=== PATIENT | male | born 1970 | race Hispanic/Latino ===

== ENCOUNTER 2022-05-01 11:47 | Emergency (ER) | payer SELFPAY ==
[2022-05-01 12:41] LABS: Absolute Lymphocytes (CBC) 1.8 K/uL (0.7-4.9); Hematocrit 41.7 % (39.6-49.0); Lymphocytes % 31.4 % (15.3-44.8); MPV 9.9 fL (7.6-11.3); RBC Red Blood Cell Count 4.53 M/uL (4.33-5.43)
[2022-05-01 12:43] LABS: Urine Blood Negative (Negative); Urine Glucose Negative (Negative); Urine Protein Negative (Negative); Urine Specific Gravity <=1.005 (1.005-1.030)
[2022-05-01 12:54] LABS: Potassium 3.7 mmol/L (3.5-5.1)
[2022-05-01 12:58] LABS: Urine Bacteria None Seen /HPF (<20); Urine RBC None Seen /HPF (None Seen)
[2022-05-01] MEDS ORDERED: lisinopriL 10 MG TAB ONE (13:23)
--- NOTE | 2022-05-01 14:10 | ER ---
Nurse's Notes [facility] Name: Keegan Tamez Age: 51 yrs Sex: Male : 1970 Arrival Date: 05/01/2022 Time: 11:50 Bed 16 Private MD: Diagnosis: Hypertensive heart disease without heart failure Presentation: 05/01 11:58 Chief complaint: Patient states: he took his blood pressure this morning and his ap3 systolic number was in the 180s. patient denies headache, states his vision is normal, and reports no neuro deficits at this time. Patient reports seeing his PCP 4 days ago, and was started on blood pressure medications at that time. patient presents to the ED today because he has a concern that his blood pressure isn't going down after starting the medication. Coronavirus screen: At this time, the client does not indicate any symptoms associated with coronavirus-19. Ebola Screen: No symptoms or risks identified at this time. Initial Sepsis Screen: Does the patient meet any 2 criteria?. Risk Assessment: Do you want to hurt yourself or someone else? Patient reports no desire to harm self or others. Onset of symptoms was May 01, 2022. 11:58 Method Of Arrival: Ambulatory ap3 12:02 Initial Sepsis Screen: Does the patient have a suspected source of infection? No. ap3 Patient's initial sepsis screen is negative. 12:02 Acuity: ERMA 3 ap3 Triage Assessment: 12:02 General: Appears in no apparent distress. Behavior is calm, cooperative. Pain: Denies ap3 pain. Neuro: Level of Consciousness is awake, alert, obeys commands, Oriented to person, place, time, situation. Cardiovascular: Patient's skin is warm and dry. Respiratory: Airway is patent Respiratory effort is even, unlabored. Historical: - Allergies: 12:01 No Known Allergies; ap3 - Home Meds: 12:01 unknown blood pressure medication with a number 10 on it [Active]; ap3 - PMHx: 12:01 Hypertensive disorder; ap3 - Immunization history:: Client reports receiving the 2nd dose of the Covid vaccine. - Social history:: Smoking status: Patient reports the use of cigarette tobacco products, denies chronic smoking, but will smoke occasionally, Patient uses alcohol, occasionally. Screenin:02 Abuse screen: Denies threats or abuse. Nutritional screening: No deficits noted. ap3 Tuberculosis screening: No symptoms or risk factors identified. 12:02 Fall Risk None identified. ap3 Assessment: 12:16 General: Appears in no apparent distress. comfortable, Behavior is calm, cooperative, ld1 appropriate for age. Pain: Denies pain. Neuro: Level of Consciousness is awake, alert, obeys commands, Oriented to person, place, time, situation. Cardiovascular: Capillary refill < 3 seconds Patient's skin is warm and dry. Rhythm is sinus bradycardia. Respiratory: Airway is patent Respiratory effort is even, unlabored. GI: Abdomen is flat, non-distended. : No signs and/or symptoms were reported regarding the genitourinary system. EENT: No signs and/or symptoms were reported regarding the EENT system. Derm: No signs and/or symptoms reported regarding the dermatologic system. Musculoskeletal: No signs and/or symptoms reported regarding the musculoskeletal system. Vital Signs: 11:58 BP 177 / 92; Pulse 60; Resp 17; Temp 98.2; Pulse Ox 100% ; Weight 90.72 kg; Height 5 ap3 ft. 9 in. (175.26 cm); 12:16 BP 167 / 96; Pulse 58; Resp 21; Pulse Ox 100% on R/A; Pain 0/10; ld1 13:09 BP 156 / 87; Pulse 63; Resp 25; Pulse Ox 100% on R/A; ld1 14:31 BP 179 / 94; Pulse 71; Resp 18; Pulse Ox 100% on R/A; ld1 11:58 Body Mass Index 29.53 (90.72 kg, 175.26 cm) ap3 ED Course: 11:50 Patient arrived in ED. mr 11:53 Chencho Reece PA is PHCP. cp 11:53 Shani Sanchez is Attending Physician. cp 12:02 Triage completed. ap3 12:02 Arm band placed on left wrist. ap3 12:03 Etta Guerrero is Primary Nurse. eh3 12:16 Patient has correct armband on for positive identification. Placed in gown. Bed in low ld1 position. Call light in reach. Side rails up X2. customer support consultant on. Pulse ox on. NIBP on. Door closed. Noise minimized. Warm blanket given. 12:16 No provider procedures requiring assistance completed. ld1 12:29 EKG done, by ED staff, reviewed by Chencho CORTEZ. mb7 12:33 Inserted saline lock: 20 gauge in left antecubital area, using aseptic technique. Blood ld1 collected. 12:58 Urine Microscopic Only Sent. ld1 13:55 XRAY Chest (1 view) In Process Unspecified. EDMS 14:37 IV discontinued. ld1 Administered Medications: 13:16 Drug: Lisinopril 10 mg Route: PO; ld1 Medication: 12:16 VIS not applicable for this client. ld1 Outcome: 14:09 Discharge ordered by . jack 14:37 Discharged to home ambulatory. ld1 14:37 Condition: stable 14:37 Discharge instructions given to patient, family, Instructed on discharge instructions, follow up and referral plans. medication usage, Demonstrated understanding of instructions, follow-up care, medications, Prescriptions given X 1. 14:37 Patient left the ED. ld1 Signatures: Dispatcher [employer] [facility] [place] Elen Chencho Loera PA PA cp Prokisch, Amanda, RN RN ap3 Leta Naik RN RN ld1 Elen Valles 7 Etta Guerrero 3
--- NOTE | 2022-05-01 14:11 | EDPHYS ---
Physician Documentation [facility] Name: Keegan Tamez Age: 51 yrs Sex: Male : 1970 Arrival Date: 05/01/2022 Time: 11:50 Bed 16 Private MD: ED Physician Shani Sanchez HPI: 05/01 12:20 This 51 yrs old Male presents to ER via Ambulatory with complaints of High cp Blood Pressure. 12:20 The patient has elevated blood pressure and discovered this at home. cp 12:20 Associated signs and symptoms: The patient has no apparent associated signs or cp symptoms. Severity of symptoms: At its worst the blood pressure was systolic pressure in 180's. Patient reports he was recently started on blood pressure medication 4 days ago. Patient unsure of name and dosage of medication and does not have medication with him. Historical: - Allergies: 12:01 No Known Allergies; ap3 - Home Meds: 12:01 unknown blood pressure medication with a number 10 on it [Active]; ap3 - PMHx: 12:01 Hypertensive disorder; ap3 - Immunization history:: Client reports receiving the 2nd dose of the Covid vaccine. - Social history:: Smoking status: Patient reports the use of cigarette tobacco products, denies chronic smoking, but will smoke occasionally, Patient uses alcohol, occasionally. ROS: 12:25 Constitutional: Negative for body aches, chills, fever, poor PO intake. cp 12:25 Eyes: Negative for injury, pain, redness, and discharge. cp 12:25 ENT: Negative for drainage from ear(s), ear pain, sore throat, difficulty swallowing, difficulty handling secretions. 12:25 Cardiovascular: Negative for chest pain, palpitations. 12:25 Respiratory: Negative for cough, shortness of breath, wheezing. 12:25 Abdomen/GI: Negative for abdominal pain, nausea, vomiting, and diarrhea. 12:25 Neuro: Negative for altered mental status, headache, numbness, weakness. 12:25 All other systems are negative. Exam: 12:30 Constitutional: The patient appears in no acute distress, alert, awake, cp non-diaphoretic, non-toxic, well developed, well nourished. 12:30 Head/Face: Normocephalic, atraumatic. cp 12:30 Eyes: Periorbital structures: appear normal, Conjunctiva: normal, no exudate, no injection, Sclera: no appreciated abnormality, Lids and lashes: appear normal, bilaterally. 12:30 ENT: External ear(s): are unremarkable, Nose: is normal, Mouth: Lips: moist, Oral mucosa: pink and intact, moist, Posterior pharynx: Airway: no evidence of obstruction, patent. 12:30 Neck: ROM/movement: is normal, is supple, without pain, no range of motions limitations. 12:30 Chest/axilla: Inspection: normal. 12:30 Cardiovascular: Rate: normal, Rhythm: regular, Edema: is not appreciated, JVD: is not appreciated. 12:30 Respiratory: the patient does not display signs of respiratory distress, Respirations: normal, no use of accessory muscles, no retractions, labored breathing, is not present, Breath sounds: are clear throughout, no decreased breath sounds, no stridor, no wheezing. 12:30 Abdomen/GI: Exam negative for discomfort, distension, guarding, Inspection: abdomen appears normal. 12:30 Neuro: Orientation: to person, place \T\ time. Mentation: is normal, Cerebellar function: is grossly normal, Motor: moves all fours, strength is normal, Sensation: is normal, Gait: is steady, at a normal pace, without difficulty. 12:35 ECG was reviewed by the Attending Physician. cp Vital Signs: 11:58 BP 177 / 92; Pulse 60; Resp 17; Temp 98.2; Pulse Ox 100% ; Weight 90.72 kg; Height 5 ap3 ft. 9 in. (175.26 cm); 12:16 BP 167 / 96; Pulse 58; Resp 21; Pulse Ox 100% on R/A; Pain 0/10; ld1 13:09 BP 156 / 87; Pulse 63; Resp 25; Pulse Ox 100% on R/A; ld1 14:31 BP 179 / 94; Pulse 71; Resp 18; Pulse Ox 100% on R/A; ld1 11:58 Body Mass Index 29.53 (90.72 kg, 175.26 cm) ap3 MDM: 12:03 Patient medically screened. cp 13:00 Differential diagnosis: hypertensive crisis, Malignant HTN, CVA, intracerebral cp hemorrhage. 13:31 Data reviewed: vital signs, nurses notes, lab test result(s), EKG, radiologic studies, cp plain films. Test interpretation: by ED physician or midlevel provider: ECG, chest xray negative for infiltrates. ED course: VSS. Blood pressure improved. Patient unsure of dosage, name of blood pressure medication and/or pharmacy used to fill prescribed blood pressure medication at this time. 05/01 12:18 Order name: Urine Microscopic Only; Complete Time: 13:09 05/01 12:18 Order name: Basic Metabolic Panel; Complete Time: 13:09 05/01 13:10 Interpretation: Normal except: GLUC 108. cp 05/01 12:18 Order name: CBC with Diff; Complete Time: 13:09 05/01 13:10 Interpretation: Normal except: PLT 136. 05/01 12:18 Order name: NT PRO-BNP; Complete Time: 13:09 05/01 12:30 Order name: XRAY Chest (1 view); Complete Time: 14:30 05/01 14:30 Interpretation: Report reviewed. 05/01 12:44 Order name: Urine Dipstick-Ancillary; Complete Time: 13:09 EDCO 05/01 12:18 Order name: Urine Dipstick-Ancillary (obtain specimen); Complete Time: 12:58 05/01 12:18 Order name: EKG; Complete Time: 12:19 cp 05/01 12:18 Order name: Cardiac monitoring; Complete Time: 12:19 cp 05/01 12:18 Order name: EKG - Nurse/Tech; Complete Time: 12:30 05/01 12:18 Order name: IV Saline Lock; Complete Time: 12:33 cp 05/01 12:18 Order name: Labs collected and sent; Complete Time: 12:33 cp 05/01 12:18 Order name: O2 Per Protocol; Complete Time: 12:19 cp 05/01 12:18 Order name: O2 Sat Monitoring; Complete Time: 12:19 cp EC:35 Rate is 56 beats/min. Rhythm is regular. DC interval is normal. QRS interval is normal. cp QT interval is normal. T waves are Inverted in leads aVR, V6. Interpreted by me. Reviewed by me. Administered Medications: 13:16 Drug: Lisinopril 10 mg Route: PO; ld1 Disposition Summary: 05/01/22 14:09 Discharge Ordered Location: Home cp Problem: chronic cp Symptoms: have improved cp Condition: Stable cp Diagnosis - Hypertensive heart disease without heart failure cp Followup: cp - With: Private Physician - When: 1 - 2 days - Reason: Recheck today's complaints Discharge Instructions: - Discharge Summary Sheet cp - Hypertension, Adult cp - Form - Blood Pressure Record Sheet cp - How to Take Your Blood Pressure cp Forms: - Medication Reconciliation Form cp - Thank You Letter cp - Antibiotic Education cp - Prescription Opioid Use cp Prescriptions: - Lisinopril 10 mg Oral Tablet - take 1 tablet by ORAL route once daily; 20 tablet; Refills: 0, Product cp Selection Permitted Signatures: Dispatcher [employer] EDMS Chencho Reece PA PA cp Prokisch, Amanda RN RN ap3 Leta Naik RN RN ld1
--- NOTE | 2022-05-01 14:16 | RAD REPORT ---
EXAM DESCRIPTION: RAD - Chest Single View - 05/01/2022 1:53 pm CLINICAL HISTORY: HTN COMPARISON: No comparisons FINDINGS: Lines: None. Lungs: No evidence of edema or pneumonia. Pleural: No significant pleural effusions or pneumothorax. Cardiac: The heart size is within normal limits. Bones: No acute fractures. Other: IMPRESSION: No acute cardiopulmonary disease.
[2022-05-01 14:52] VITALS: TEMP 98.2; O2SAT 100
[2022-05-01 14:58] VITALS: BP 179/94
--- NOTE | 2022-05-02 09:28 | EKG ---
Test Date: 2022-05-01 Test Time: 12:29:02 Business Services Assistant: MB MEASUREMENT RESULTS: Intervals: Rate: 56 OH: 186 QRSD: 84 QT: 442 QTc: 426 [place]: P: 28 OH: 186 QRS: 26 T: 66 INTERPRETIVE STATEMENTS: Sinus bradycardia Nonspecific T wave abnormality Abnormal ECG No previous ECG available for comparison Electronically Signed On 05-02-22 09:24:54 CDT by Sidney Patel
== END 2022-05-01 14:37 | disposition home or self-care (01) ==
LOC: ER 11:47
DX: I11.9 Hypertensive heart disease without heart failure (principal); I10 Essential (primary) hypertension; F17.210 Nicotine dependence, cigarettes, uncomplicated
CPT/HCPCS: 36415; 71045; 80048; 81003; 81015; 83880; 85025; 93005; 99285